=== PATIENT | male | born 1960 | race African-American/Black ===

== ENCOUNTER 2016-05-09 00:26 | Emergency (ER) | payer OTHER ==
[~2016-05-09] VITALS: Ht 162.6 cm; Wt 77.3 kg
[2016-05-09 00:41] VITALS: BP 135/84; PULSE 83; RESP 20; O2SAT 97
--- NOTE | 2016-05-09 00:58 | ED.REPORT ---
HPI-Abd Pain M 40 and Over Date of Service May 09, 2016 ED Provider: Lopez Arias MD Patient is a deaf 56 year old male with a history of esophageal ulcer who presents to the ED with RUQ and LLQ abdominal pain that began earlier today. He describes the pain as an "ulcer" and admits that he has been stressed recently. He denies nausea, vomiting, diarrhea, constipation, bloody or tarry stool, hematemesis, or fever. Nursing Notes Stated Complaint: ABDOMINAL PAIN Chief Complaint: Male Abdominal Pain Nursing Notes Reviewed: Yes Allergies: Coded Allergies: No Known Allergies (Unverified , 07/02/15) General Time Seen by MD: 00:58 Chief Complaint Abdominal pain Hx Obtained From: Patient Arrived By: Walk-in Sudden in Onset?: No Onset Occurred: 9 - 12 hours ago Symptom Duration: Since onset Location: : Diffuse: LLQ: RUQ Quality: Painful Severity: Current: Moderate Severity: Maximum: Moderate Recent Healthcare: No recent doctor visit, No recent hospitalization Similar Sx Previous: No Past Medical History Past Medical History Deaf Glaucoma Esophageal ulcer arthritis Past Surgical History None reported Smoking History Unknown if Ever Smoker Social History Other Social History: Good social support, , Local resident Ambulatory Status Independent Review of Systems Constitutional: Denies: Chills, Fever GI: Reports: Abdominal pain, Denies: Bloody/tarry stool, Constipation, Diarrhea, Hematemesis, Hematochezia , Vomiting Complete sys rev & neg: except as marked. Physical Exam Initial Vital Signs Vital Signs (First) Date Time Temp Pulse Resp B/P Pulse Ox O2 Delivery O2 Flow Rate FiO2 05/09/16 00:41 36.5 83 20 135/84 97 Room Air Initial VS: Reviewed Head / Eyes: Atraumatic, Normocephalic, PERRL ENT: Conjunctiva normal, No scleral icterus Neck: Supple, Full range of motion Extremities: Vascular intact, Neuro intact Skin: Warm, Dry, No cyanosis Neurologic: Alert, Oriented, Nonfocal Psychiatric: Mood/affect normal, Behavior normal, Normal thought content General/Constitutional: Awake, Alert, No acute distress deaf Respiratory / Chest: Breath sounds NL, Breath sounds = bilat, No respiratory distress, No rales, No rhonchi, No wheezing Cardiovascular: Heart rate NL, Regular rhythm, Heart sounds NL Abdomen: Soft, BS normoactive Tenderness/Guarding/Rebound: Positive: Tender diffuse (mild) Back: Painless range of motion Interpretation & Diagnostics Lab Results Interpretation Result Diagram: 05/09/16 0140 05/09/16 0140 Test 05/09/16 01:40 White Blood Count 9.3th/mm3 (3.8-10.1) Red Blood Count 4.82mil/mm3 (4.40-5.80) Hemoglobin 14.1g/dL (13.8-17.2) Hematocrit 43.1% (41.0-50.0) Mean Corpuscular Volume 89.4fL (81-100) Mean Corpuscular Hemoglobin 29.3pg (27.0-35.0) Mean Corpuscular Hemoglobin Concent 32.7% (32.0-37.0) Red Cell Distribution Width 14.7% (12.3-15.4) Platelet Count 250bil/L (150-400) Neutrophils (%) (Auto) 66.8% (40-74) Lymphocytes (%) (Auto) 23.6% (14-46) Monocytes (%) (Auto) 7.9% (4-12) Eosinophils (%) (Auto) 1.2% (0-5) Basophils (%) (Auto) 0.2% (0-3) Prothrombin Time 11.3sec (8.1-12.5) Prothromb Time International Ratio 1.05ratio Sodium Level 138mEq/L (134-144) Potassium Level 4.2mEq/L (3.5-5.2) Chloride Level 102mEq/L (97-108) Carbon Dioxide Level 26mmol/L (18-29) Blood Urea Nitrogen 15mg/dL (6-24) Creatinine 1.00mg/dL (0.76-1.27) Estimat Glomerular Filtration Rate 82mL/min (>59) Glucose Level 97mg/dL (60-99) Calcium Level 9.0mg/dL (8.5-10.1) Magnesium Level 1.8mg/dL (1.6-2.6) Total Bilirubin 0.2mg/dL (0.0-1.2) Aspartate Amino Transf (AST/SGOT) 19U/L (0-50) Alanine Aminotransferase (ALT/SGPT) 26U/L (0-44) Alkaline Phosphatase 52U/L (25-150) Total Protein 7.8g/dL (6.4-8.4) Albumin 3.8g/dL (3.4-5.0) Lipase 19U/L (13-60) ECG Interpretation ECG Interpretation: Sinus Rhythm, Rate 60 Time: 01:48 Interpreted by: ED physician Normal ECG Interpretation: No acute ischemic changes X-Ray Chest Interpretation Chest Xray Interpretation: Impression: No acute cardiopulmonary process. Constipation. View: AP & lat Interpretation / Wet Read by: Wet read ED physician CT Abd / Pelvis Interpretation CONCLUSION: No acute or active abdominal process. Minimal ground glass density in the medial basal segment of the right lower lobe. This may be chronic or acute. Any signs or symptoms of pneumonia? Radiologist: Kendall Solo MD 05/09/2016 - 3:02:27 AM PST Study type: Abdominal CT no contrast Interpretation / Wet Read by: Interpret - Radiologist Re-Eval/Medical Decision Med Decision/Clinical Course 56-year-old with mild abdominal pain of uncertain etiology, negative by lab and negative by CT. There is mild prominence of fecal material in the colon. He is provided with milk of magnesia and a brief course of milk of magnesia for symptom relief. Discharged in stable condition with instructions to return promptly if worse or not improving. Source of Hx: Old records Time of Eval: 03:40 Re-Evaluation/Progress Note: Informed the patient of the results of his labs, CT scan, EKG, and chest x-ray. Patient appears to be constipated. Patient understands and agrees with the plan to be discharged home. Discharge instructions and follow-up discussed. All questions were addressed. Return to the ED warnings given. Counseled Regarding: Diagnosis, Lab results, Need for follow-up, When/why to return to ED Discharge & Departure Primary Impression: Generalized abdominal pain Additional Impression: Constipation Constipation type: unspecified constipation type Qualified Code: K59.00 - Constipation, unspecified Disposition: Home Vital Signs - All Vital Signs Date Time Temp Pulse Resp B/P Pulse Ox O2 Delivery O2 Flow Rate FiO2 05/09/16 05:24 36.2 78 16 118/64 99 Room Air 05/09/16 00:41 36.5 83 20 135/84 97 Room Air )( All Prior VS Reviewed: Yes Condition: Stable Patient Instructions: Constipation (ED), Acute Abdominal Pain (ED) Additional Instructions: We do not find any dangerous cause for your pain. You appear to have some element of constipation. Follow-up with your doctor in the office. Take milk of magnesia 1 tablespoon nightly for two more nights. Drink plenty of clear fluids and stay well-hydrated. Return if any immediate issues. Referrals: Trae Tuttle MD (PCP) Scribe Attestation Portions of this note were transcribed by Dilcia Diaz. I, Dr. Arias personally performed the history, physical exam and medical decision-making; I reviewed and confirmed the accuracy of the information in the transcribed note. Signed by: Orlin Guevara, 05/09/2016 0346 copies to: Trae Tuttle MD, Christopher W MD May 09, 2016 00:58 Dilcia Diaz May 09, 2016 01:06
[2016-05-09] MEDS ORDERED: 0.9% Sodium Chloride 1,000 ML IV ONE (01:06)
[2016-05-09] MEDS ORDERED: Pantoprazole 4 mg/mL 10 mL Inj IVPUSH ONE (01:10)
[2016-05-09 01:50] LABS: BASOPHILS % (AUTO) 0.2 % (0-3); EOSINOPHILS % (AUTO) 1.2 % (0-5); MONOCYTES % (AUTO) 7.9 % (4-12); Mean Corpuscular Hemoglobin 29.3 pg (27.0-35.0); Mean Corpuscular Volume 89.4 fL (81-100); NEUTROPHILS % (AUTO) 66.8 % (40-74); Platelet Count 250 bil/L (150-400)
[2016-05-09 02:08] LABS: INR 1.05 ratio
[2016-05-09 02:20] LABS: Magnesium 1.8 mg/dL (1.6-2.6)
[2016-05-09] MEDS ORDERED: Magnesium Hydroxide 10 mL Oral Concentration PO ONE (03:30)
[2016-05-09 05:24] VITALS: BP 118/64; PULSE 78; RESP 16; O2SAT 99
--- NOTE | 2016-05-09 08:09 | DRSVH ---
PROCEDURE: CT ABDOMEN AND PELVIS WITH CONTRAST ([id number]) INDICATIONS: Right upper quadrant and left lower quadrant abdominal pain for One day. TECHNIQUE: After the administration of intravenous contrast, 5 mm thick sections acquired from the diaphragm to the symphysis. 5 mm coronal and sagittal reformats were acquired. For radiation dose reduction, the following was used: automated exposure control, adjustment of mA and/or kV according to patient fermin reddy. COMPARISON: [facility], CT, CT KUB, 07/02/2015, 23:28. FINDINGS: Image quality: Excellent. ABDOMEN: Lung bases: Right basilar opacities probably atelectasis or scarring.. Heart size is normal. There is a small hiatal hernia. Solid organs: Liver and spleen are normal in size and enhancement. Gallbladder is normal. Biliary system is non dilated. Pancreas enhances normally. No adrenal nodules. Kidneys demonstrate normal size and enhancement, without hydronephrosis. Peritoneum and bowel: Bowel loops demonstrate normal wall thickness and caliber. No free fluid or a ir. Nodes and vessels: No retroperitoneal or mesenteric adenopathy by size criteria. Aorta and inferior vena cava are normal in size. Miscellaneous: No ventral hernias. PELVIS: Genitourinary: Bladder wall appears thickened but the bladder is contracted. Prostate is enlarged. Miscellaneous: No inguinal hernias or adenopathy. Bones: No suspicious bony lesions. No vertebral body compression fractures. IMPRESSION: 1. No acute abnormality seen on CT. No findings to explain right upper quadrant and left lower quadra nt abdominal pain. 2. Small hiatal hernia. 3. Bladder wall appears thickened which is most likely secondary to inadequate distention. 3. Enlarged prostate. No significant discrepancy with the night supervisor radiology preliminary report. Dictated by: Freya Wilkes M.D. on 05/09/2016 at 7:59 Approved by: Freya Wilkes M.D. on 05/09/2016 at 8:07
--- NOTE | 2016-05-09 09:04 | DRSVH ---
PROCEDURE: X-RAY CHEST, TWO VIEWS ([id number]) INDICATIONS: ? iinfiltrate on ct TECHNIQUE: 2 views of the chest were acquired. COMPARISON: [facility], CT, CT ABD PELVIS W CON, 05/09/2016, 2:29. FINDINGS: Surgical changes and devices: None. Lungs and pleura: No pleural effusions or pneumothorax. Minimal medial right lung base airspace [place]. Mediastinum: Mediastinal contours are normal. Heart size is normal. Bones and chest wall: No suspicious bony abnormalities. Soft tissues appear unremarkable. IMPRESSION: Probable right basilar atelectasis but developing infiltrate cannot entirely be excluded. Recommend clinical correlation. Dictated by: Bean Ramon [facility] Interpreted: Billie Olmedo MD on 05/09/2016 at 9:03 Transcribed by: CARIE on 05/09/2016 at 9:03 Approved by: Billie Olmedo MD, PhD on 05/09/2016 at 17:04
== END 2016-05-09 05:26 | disposition home or self-care (01) ==
LOC: SED 00:26
DX: R10.84 Generalized abdominal pain (principal); K59.00 Constipation, unspecified; Z87.19 Personal history of other diseases of the digestive system
CPT/HCPCS: 36415; 71020; 74177; 80053; 83690; 83735; 85025; 85610; 93005; 96361; 96374; 96375; 99285; J7030; Q9967